=== PATIENT | female | born 1935 | race Caucasian/White ===

== ENCOUNTER 2019-12-16 09:18 | Observation (INO) ==
--- NOTE | 2019-12-16 09:42 | ED.PDOC ---
General ED Provider: Dr. JOVANI ALONSO Chief Complaint: Hypertension Stated Complaint: Went to clinic for eval of rt knee pain. Discovered BP drastically elevated. Referred to ER. Denies Headache, visual changes, chest pain or other symptoms. Time Seen by Physician: 09:30 Mode of Arrival: Wheelchair Information Source: Patient Nursing and Triage Documentation Reviewed and Agree: Yes Does patient meet sepsis criteria?: No System Inflammatory Response Syndrome: Not Applicable Sepsis Protocol: For patient's 13 years and over: Temp is 96.8 and below OR 101 and greater Pulse >90 BPM Resp >20/minute Acutely Altered Mental Status Are patient's symptoms suggestive of a new infection, such as: -Pneumonia -Skin, Soft Tissue -Endocarditis -UTI -Bone, Joint Infection -Implantable Device -Acute Abdominal Infection -Wound Infection -Meningitis -Blood Stream Catheter Infection -Unknown Cardiovascular Complaint Exam Hypertension Complaint/Exam Onset/Duration: First noted this morning Symptoms Are: Still present Timing: Constant Reported B/P Prior to Arrival: 218/100 H Alleviating: Reports None Associated Signs and Symptoms: Denies Chest pain, Vision changes, Anxiety, Recent stress, Headache, Numbness, Tingling, Weakness, Dizziness, Short of air and Swelling Related History: Denies Similar episode Related Surgical History: Reports None Cardiac Risk Factors: Reports None and Hypertension Recent Change in Medications: No A/V Nicking: No Papilledema Present: No JVD Present: No Carotid Bruit Present: No Femoral Pulses Bounding: No Differential Diagnoses: Hypertension and Hypertensive Urgency Quality Indicator For Non-Traumatic Chest Pain/Syncope: EKG Performed Review of Systems Review Of Systems Constitutional: Reports No symptoms Eyes: Reports No symptoms Ears, Nose, Mouth, Throat: Reports No symptoms Respiratory: Reports No symptoms Cardiac: Reports No symptoms GI: Reports No symptoms : Reports No symptoms Musculoskeletal: Reports Joint pain (Rt Knee) and Joint swelling Skin: Reports No symptoms Neurological: Reports No symptoms Endocrine: Reports No symptoms Hematologic/Lymphatic: Reports No symptoms All Other Systems: Reviewed and Negative [facility] Medical History History of appendectomy (Acute) Family History BROTHER Diabetes Cardiac arrest Hypertension Elevated cholesterol Social History Smoking and tobacco status: Never smoker Alcohol intake: never Kristi/gnosticism: JEW Number of children: 1 Female Reproductive History Menstrual Age of Menarche: 14 Date of menopause: 11/26/89 Total pregnancies: 1 Full term: 1 Physical Exam Physical Exam Appearance: Reports Well-appearing, No pain distress and Well-nourished Ill-appearing: None Pain Distress: None Eyes: Reports JOHNNIE, EOMI and Conjunctiva clear ENT: Reports Ears normal, Nose normal and Oropharynx normal Neck: Supple Respiratory: Reports Airway patent, Breath sounds clear, Breath sounds equal and Respirations nonlabored Cardiovascular: Reports RRR, Pulses normal, No rub and No murmur GI/: Reports Soft, Nontender, No masses, Bowel sounds normal and No Organomegaly Musculoskeletal: Reports Normal strength, ROM intact, No edema (Rt Knee/minimally tender) and No calf tenderness Skin: Reports Warm, Dry and Normal color Neurological: Reports Sensation intact, Motor intact, Reflexes intact, Cranial nerves intact, Alert and Oriented Psychiatric: Reports Affect appropriate and Mood appropriate Interpretation Radiology Interpretation Radiology Interpretation By: Radiologist Exam Interpreted: CXR (No acute cardiopulmonary process. 2. Retrocardiac opacity likely moderate to large hiatal hernia. Other etiologies considered less likely. Question associated gaseous esophageal distension. Recommend correlation with CT chest. ) and Other (Knee-degerative changes) Rn Radiation Time of Rn Radiation Interpretation: 09:30 Rate: Tachy Rhythm: Sinus Ectopy: None EKG Interpretation Time of EKG #1: 09:47 Rate: Tachy Rhythm: Sinus Ectopy: None [place]: Left ST Segment: Normal Interpretation: LVH Physician Notification Case Discussed Physician Notified: Kirsty admission Time of Notification: 14:00 Critical Care Note Critical Care Note Total Time (mins): 60 Course Course Hematology/Chemistry: 12/16/19 09:50 12/16/19 09:50 Orders, Labs, Meds: Lab Review 12/16/19 12/16/19 12/16/19 09:50 09:50 09:50 WBC 7.52 RBC 4.89 Hgb 14.8 Hct 44.4 MCV 90.8 MCH 30.3 MCHC 33.3 RDW Coeff of Junior 11.9 Plt Count 295 Immature Gran % (Auto) 0.4 Neut % (Auto) 81.8 H Lymph % (Auto) 9.8 L [place] % (Auto) 7.2 Eos % (Auto) 0.1 Baso % (Auto) 0.7 Immature Gran # (Auto) 0.0 Neut # (Auto) 6.2 Lymph # (Auto) 0.7 [place] # (Auto) 0.5 Eos # (Auto) 0.0 Baso # (Auto) 0.1 Sodium 136.3 Potassium 4.32 Chloride 103.8 Carbon Dioxide 22.8 Anion Gap 14.02 BUN 16.9 Creatinine 0.88 Estimated GFR (MDRD) 62.00 BUN/Creatinine Ratio 19.20 Glucose 153.0 H Hemoglobin A1c Calcium 9.90 Magnesium 2.12 Total Bilirubin 0.65 AST 43.0 H ALT 19.7 Alkaline Phosphatase 93.9 Troponin I < 0.012 Total Protein 8.21 H Albumin 4.68 Globulin 3.53 Albumin/Globulin Ratio 1.32 Urine Color Urine Clarity Urine pH Ur Specific [place] Urine Protein Urine Glucose (UA) Urine Ketones Urine Blood Urine Nitrite Urine Bilirubin Urine Urobilinogen Ur Leukocyte Esterase Urine Microscopic RBC Urine Microscopic WBC Ur Squamous Epith Cells Ur Renal Epithelial Cell Urine Opiates Screen Ur Oxycodone Screen Urine Methadone Screen Ur Propoxyphene Screen Ur Barbiturates Screen U Tricyclic Antidepress Ur Phencyclidine Scrn Ur Amphetamine Screen U Methamphetamines Scrn U Benzodiazepines Scrn Urine Cocaine Screen U Cannabinoids Screen 12/16/19 12/16/19 12/16/19 09:50 11:15 11:15 WBC RBC Hgb Hct MCV MCH MCHC RDW Coeff of Junior Plt Count Immature Gran % (Auto) Neut % (Auto) Lymph % (Auto) [place] % (Auto) Eos % (Auto) Baso % (Auto) Immature Gran # (Auto) Neut # (Auto) Lymph # (Auto) [place] # (Auto) Eos # (Auto) Baso # (Auto) Sodium Potassium Chloride Carbon Dioxide Anion Gap BUN Creatinine Estimated GFR (MDRD) BUN/Creatinine Ratio Glucose Hemoglobin A1c 5.89 Calcium Magnesium Total Bilirubin AST ALT Alkaline Phosphatase Troponin I Total Protein Albumin Globulin Albumin/Globulin Ratio Urine Color Cancelled Urine Clarity Cancelled Urine pH Cancelled Ur Specific [place] Cancelled Urine Protein Cancelled Urine Glucose (UA) Cancelled Urine Ketones Cancelled Urine Blood Cancelled Urine Nitrite Cancelled Urine Bilirubin Cancelled Urine Urobilinogen Cancelled Ur Leukocyte Esterase Cancelled Urine Microscopic RBC Urine Microscopic WBC Ur Squamous Epith Cells Ur Renal Epithelial Cell Urine Opiates Screen Cancelled Ur Oxycodone Screen Cancelled Urine Methadone Screen Cancelled Ur Propoxyphene Screen Cancelled Ur Barbiturates Screen Cancelled U Tricyclic Antidepress Cancelled Ur Phencyclidine Scrn Cancelled Ur Amphetamine Screen Cancelled U Methamphetamines Scrn Cancelled U Benzodiazepines Scrn Cancelled Urine Cocaine Screen Cancelled U Cannabinoids Screen Cancelled 12/16/19 12/16/19 12:23 12:23 WBC RBC Hgb Hct MCV MCH MCHC RDW Coeff of Junior Plt Count Immature Gran % (Auto) Neut % (Auto) Lymph % (Auto) [place] % (Auto) Eos % (Auto) Baso % (Auto) Immature Gran # (Auto) Neut # (Auto) Lymph # (Auto) [place] # (Auto) Eos # (Auto) Baso # (Auto) Sodium Potassium Chloride Carbon Dioxide Anion Gap BUN Creatinine Estimated GFR (MDRD) BUN/Creatinine Ratio Glucose Hemoglobin A1c Calcium Magnesium Total Bilirubin AST ALT Alkaline Phosphatase Troponin I Total Protein Albumin Globulin Albumin/Globulin Ratio Urine Color Yellow Urine Clarity Clear Urine pH 6.5 Ur Specific [place] 1.010 Urine Protein Negative Urine Glucose (UA) Negative Urine Ketones Negative Urine Blood 1+ Urine Nitrite Negative Urine Bilirubin Negative Urine Urobilinogen 0.2 Ur Leukocyte Esterase Trace Urine Microscopic RBC 0-2 Urine Microscopic WBC 0-2 Ur Squamous Epith Cells 0-2 Ur Renal Epithelial Cell 0-2 Urine Opiates Screen Negative Ur Oxycodone Screen Negative Urine Methadone Screen Negative Ur Propoxyphene Screen Negative Ur Barbiturates Screen Negative U Tricyclic Antidepress Negative Ur Phencyclidine Scrn Negative Ur Amphetamine Screen Negative U Methamphetamines Scrn Negative U Benzodiazepines Scrn Negative Urine Cocaine Screen Negative U Cannabinoids Screen Negative Orders Category Date Time Status ADMIT OBSERVATION [PLACE PATIENT OBSERVATION] .TO ADMISSION 12/16/19 14:09 Active MEDSURG (MONITORED BED) EKG-(ED ONLY) Stat CARDIO 12/16/19 09:42 Completed ACTIVITY .BR with BRP CARE 12/16/19 14:04 Active BLOOD GLUCOSE MONITORING 0630,1100,1700,2100 CARE 12/16/19 14:04 Active INTAKE & OUTPUT Q8HR CARE 12/16/19 14:04 Active TELEMETRY MONITORING TELE CARE 12/16/19 14:10 Active VITAL SIGNS Q4HR CARE 12/16/19 14:04 Active 2 GRAM SODIUM DIET DIETARY 12/16/19 Lunch Ordered IV [ED IV/MEDIPORT/POWERPORT] .ONCE EMERGENCY 12/16/19 09:43 Active CBC W/ AUTO DIFF Stat LAB 12/16/19 09:50 Completed CMP [COMPREHENSIVE METABOLIC PANEL] Stat LAB 12/16/19 09:50 Completed DRUG SCREEN (RAPID FOR ED) [DRUG SCREEN, URINE, RAPID] LAB 12/16/19 12:23 Completed Stat HEMOGLOBIN A1C Stat LAB 12/16/19 09:50 Completed MAGNESIUM Stat LAB 12/16/19 09:50 Completed TROPONIN I Stat LAB 12/16/19 09:50 Completed URINALYSIS C & S IF INDICATED Stat LAB 12/16/19 12:23 Completed 0.9 % Sodium Chloride [Saline Flush] MEDS 12/16/19 09:43 Active 1 syr IVF PRN PRN Acetaminophen [Tylenol] MEDS 12/16/19 14:03 Ordered 650 mg PO Q4H PRN Labetalol HCl [Trandate] MEDS 12/16/19 10:03 Discontinued 10 mg IVP ONCE STA Labetalol HCl [Trandate] MEDS 12/16/19 10:53 Discontinued 10 mg IVP ONCE STA Labetalol HCl [Trandate] MEDS 12/16/19 12:27 Discontinued 100 mg PO ONCE STA RESUSCITATION STATUS Routine OTHERS 12/16/19 14:03 Ordered CHEST, 2 VIEWS PA & LAT Stat RADS 12/16/19 09:42 Completed KNEE, RIGHT 4 VIEWS Stat RADS 12/16/19 09:59 Completed Medications Generic Name Dose Route Start Last Admin Trade Name Freq PRN Reason Stop Dose Admin Acetaminophen 650 mg 12/16/19 14:03 Tylenol PO Q4H PRN Pain Sodium Chloride 1 syr 12/16/19 09:43 12/16/19 10:14 Saline Flush IVF 1 syr PRN PRN Administration To flush IV Discontinued Medications Generic Name Dose Route Start Last Admin Trade Name Freq PRN Reason Stop Dose Admin Labetalol HCl 10 mg 12/16/19 10:03 12/16/19 10:11 Trandate IVP 12/16/19 10:04 10 mg ONCE STA Administration Labetalol HCl 10 mg 12/16/19 10:53 12/16/19 11:04 Trandate IVP 12/16/19 10:54 10 mg ONCE STA Administration Labetalol HCl 100 mg 12/16/19 12:27 12/16/19 12:34 Trandate PO 12/16/19 12:28 100 mg ONCE STA Administration Vital Signs: Temp Pulse Resp BP Pulse Ox 12/16/19 09:18 97.8 F 135 H 20 239/135 H 97 LARA Risk Score LARA Risk Score: Risk Score Odds of by 30D 0 0.1 (0.1-0.2) 1 0.3 (0.2-0.3) 2 0.4 (0.3-0.5) 3 0.7 (0.6-0.9) 4 1.2 (1.0-1.5) 5 2.2 (1.9-2.6) 6 3.0 (2.5-3.6) 7 4.8 (3.8-6.1) Additional Information: 1250 hr Discussed plans for discharge with patient and her daughter in law. Patient reluctant and I expressed concern over close monit oring of her BP and she agreed to accept admission. Placed a call for hospitalist for admission. Awaiting call back
[2019-12-16] MEDS ORDERED: TRANDATE IVP STA ×2 (10:03→10:53)
--- NOTE | 2019-12-16 10:41 | DI ---
EXAM: Right knee three-view HISTORY: Pain right knee COMPARISON: None FINDINGS: No fracture or dislocation. Small medial and retropatellar osteophytes. Mild narrowing m edial and patellofemoral compartment. No definite joint effusion. IMPERSSION: 1. No fracture or dislocation. 2. Mild osteoarthritis
--- NOTE | 2019-12-16 10:48 | DI ---
EXAM: Chest two views HISTORY: Hypotension COMPARISON: None TECHNIQUE: Two views of the chest were performed FINDINGS: The lungs are clear. There is no pleural effusion or pneumothorax. The heart is normal i n size. The mediastinal contour is normal, noting atherosclerosis. There are no acute abnormalities of the bones. Retrocardiac opacity likely moderate to large hiatal hernia. Question associated gase ous esophageal distension. IMPRESSION: 1. No acute cardiopulmonary process. 2. Retrocardiac opacity likely moderate to large hiatal hernia. Other etiologies considered less li janis. Question associated gaseous esophageal distension. Recommend correlation with CT chest.
[2019-12-16] MEDS ORDERED: TRANDATE PO STA (12:27)
[2019-12-16] MEDS ORDERED: TYLENOL PO PRN (14:03)
[2019-12-16 15:05] VITALS: BMI 22.5
--- NOTE | 2019-12-16 15:24 | PCM ---
Chief Complaint Chief Complaint: "High blood pressure reading at doctor's office" History of Present Illness History of Present Illness: Yvonne Zuiñga is a 84 yo female patient who presents to [facility] ER this afternoon as referral from an unknown clinic due to incidental finding of elevated BP 218/110 upon check in for R knee pain appt for 1-2 weeks. The patient has not seen a provider for 52 yrs since her son was born and denies any known health issues till now. She now says her R knee x-ray ordered today "just showed osteoarthritis." She was not given any medications, but sent to [facility] ER instead for HTN tx. She has never had her BP taken in 52 yrs and has not had any symptoms of HTN--CP, headaches, dizziness, swelling, fatigue, or other c/o's. See ROS below. She never takes medications or has a well physical. Patient denies ETOH, Tobacco, or Elicit Drug usage. [facility] is positive for 52 yo son for MT age 50yo w/ HTN. Her brother recently in his 90's w/ multiple health problems, including DM, HTN, Pacemaker, HLD, and MT. Review of Systems Constitutional: No fever, chills, weakness, sweats, fatigue and loss of appetite Eyes: No blurred vision, double-vision, discharge, itching, pain and redness Ears: hearing loss ([employer] for 1 yr; "getting my ears checked soon for hearing aids"); No pain, bleeding and drainage Nose: No bleeding, congestion and discharge Throat: No pain, swelling and voice change Mouth: No bleeding and swelling Respiratory: No cough, shortness of air, wheeze, hemoptysis and pain with breathing Cardiovascular: No chest pain, left arm pain, diaphoresis, PND, orthopnea, edema, palpitations and syncope Gastrointestinal: No abdominal pain, nausea, vomiting, diarrhea, melena, hematemesis, hematochezia and constipation (Last BM this AM.) Genitourinary: No dysuria, hematuria, frequency, incontinence, flank pain, vaginal discharge, abnormal bleeding and pelvic pain Last Menstrual Cycle: Post Menopausal Neurological: No headache, dizziness, seizure, numbness, weakness, speech difficulty, problems with walking, tremor and fainting Musculoskeletal: pain (R knee for 1-2 weeks---"just had x-ray today and they told me it was just arthritis" ) and swelling in joints (w/ R knee pain had swelling entire knee that would go down at HS w/ rest; denies redness, heat, or tenderness to touch.) Skin: No rash, pruritus, lacerations, wounds and bruising Hematology: No easy bruising, easy bleeding and swollen glands Endocrine: No weight changes, cold intolerance, heat intolerance, excessive thirst, excessive hunger and polyuria Psychiatric: depression ("sometimes I feel a little sad since my brother , but I call someone and talk it out." ); No anxiety, sleeplessness, hopelessness, suicidal and hallucinations Habits: No tobacco use, substance use and alcohol use Allergies Allergies Allergy/AdvReac Type Severity Reaction Status Date / Time No Known Allergies Allergy Verified 12/16/19 09:22 [facility] Surgical History History of appendectomy (Acute) Family History BROTHER Cardiac arrest Diabetes Elevated cholesterol Hypertension Pacemaker Social History Smoking and tobacco status: Never smoker Alcohol intake: never Substance use type: does not use Kristi/denominational: JEW Special kristi needs: No Agree to transfusion: Yes Adopted: No Caregiver/support person: No Household members: none Housing: house Marital status: D Lives independently: Yes Number of children: 1 Number of grandchildren: 2 Highest education level completed: 8th grade Current occupational status: retired Previous occupational history: Retired cosemetologist Pets and animals: Yes History of recent travel: No Sexually active: No Do you think of yourself as: straight/heterosexual Current gender identity: female Medications Medications: Medications Generic Name Dose Route Start Last Admin Trade Name Freq PRN Reason Stop Dose Admin Acetaminophen 650 mg 12/16/19 14:03 Tylenol PO Q4H PRN Pain Sodium Chloride 1 syr 12/16/19 09:43 12/16/19 10:14 Saline Flush IVF 1 syr PRN PRN Administration To flush IV Body Composition Height: 5 ft 2 in Weight: 123 lb 3.814 oz Body Mass Index (BMI): 22.5 Physical Examination HEENT: Vital Signs Temp Pulse Resp BP Pulse Ox 12/16/19 17:05 98.6 F 85 18 160/100 H 98 12/16/19 14:40 97.8 F 78 16 98 12/16/19 09:18 97.8 F 135 H 20 239/135 H 97 Head: Head: Normocephalic; No lesions or lacerations noted. All sinuses non- tender on palpation. Ears: No pinna tenderness or abnormality. Bilateral canals patent w/o erythema, tenderness, edema, wax or d/c. TM's shiny christ/perez w/ landmarks present; no bulging or fluid present. [employer]. Eyes: Eye lids w/o swelling, erythema, or lesions. PERRLA. No tameka erythema of iris/conjunctiva or other abnormalities noted. No drainage or periorbital edema. Vision grossly intact. Nose: Patent bilaterally. Nasal mucosa pink and moist. No lesions. No discharge or blood noted. Nasal septum not deviated. Throat: Pharynx w/ injection, lesions or PND. Tonsils w/o deviation, enlargement or lesions. Uvula midline. Mouth: Oral mucosa pink and moist. Missing teeth upper & lower bilaterally w/ no dental carries noted w/o gum erythema, swelling, or lesions. Dentition discussed and appropriate oral care. Tongue normal/midline. Neck: Supple; NT to palpation w/o masses or lymphadenopathy; FROM w/o pain. Thyroid palpable w/o tenderness or nodules noted. Neurological: A/OX4. Cranial nerves II-XII evaluated and intact. LOZOYA well; symmetrical. Symmetrical face and body posture. Gait steady. Rhomberg negative. Cyrus's Negative. Reflexes intact w/ DTR 2+/4+ patellar, Achilles, bicep, brachial and triceps. Strength 4/5= bilaterally UE and LE. Sensation intact to light and strong tactile extremities X4. No Parkinsons or other tremor, head bobbing, or pill rolling tremor noted. Chest: Chest wall symmetric; no pectus deformity. NT to palpation. Lungs: CTA. No rhonchi, rales, or wheezes. No retractions. Respirations easy and regular at rest and exercise. No cough on exam. O2 sat 99% on RA. Heart: Carotid Arteries normal, no bruits or abnormal pulsations. Jugular veins w/o pulsations or JVD. Palpation w/ normal PMI; no palpable thrill. RRR. Holistic systolic murmur > 5th ICS 3+/4+. Extremities w/o clubbing, cyanosis, edema or increased warmth. NBB. Abdomen: Normal inspection w/ no visible pulsations. Normal contour. GAYATRI/SO present; no bruits. Soft, NT, no rebound tenderness or guarding, no masses or organomegaly. No CVA tenderness. No hernias noted. Rectal not examined. M/S: LOZOYA well and symmetrically. No digital clubbing or cyanosis present w/ sensation intact X4. All extremities w/ normal temperature; no swelling, edema, or ulcerations. DP pulses 2+ bilaterally. Normal capillary refill. NeuroPsych: Alert & oriented X4. Good eye contact. Cooperative and pleasant. Resting quielty in bed. Admits to some anxiety re: ST memory issues (See ROS). Thought content appropriate. ST & LT memory intact at present. Judgement appropriate. Denies active thoughts or plan SI or HI; no history suicide attempt or ideation in past. Lab/Tests/Diagnostic Imaging Lab/Tests/Diagnostic Imaging: Lab Review 12/16/19 12/16/19 12/16/19 09:50 09:50 09:50 WBC 7.52 RBC 4.89 Hgb 14.8 Hct 44.4 MCV 90.8 MCH 30.3 MCHC 33.3 RDW Coeff of Junior 11.9 Plt Count 295 Immature Gran % (Auto) 0.4 Neut % (Auto) 81.8 H Lymph % (Auto) 9.8 L [place] % (Auto) 7.2 Eos % (Auto) 0.1 Baso % (Auto) 0.7 Immature Gran # (Auto) 0.0 Neut # (Auto) 6.2 Lymph # (Auto) 0.7 [place] # (Auto) 0.5 Eos # (Auto) 0.0 Baso # (Auto) 0.1 Sodium 136.3 Potassium 4.32 Chloride 103.8 Carbon Dioxide 22.8 Anion Gap 14.02 BUN 16.9 Creatinine 0.88 Estimated GFR (MDRD) 62.00 BUN/Creatinine Ratio 19.20 Glucose 153.0 H Hemoglobin A1c Calcium 9.90 Magnesium 2.12 Total Bilirubin 0.65 AST 43.0 H ALT 19.7 Alkaline Phosphatase 93.9 Troponin I < 0.012 Total Protein 8.21 H Albumin 4.68 Globulin 3.53 Albumin/Globulin Ratio 1.32 Urine Color Urine Clarity Urine pH Ur Specific [place] Urine Protein Urine Glucose (UA) Urine Ketones Urine Blood Urine Nitrite Urine Bilirubin Urine Urobilinogen Ur Leukocyte Esterase Urine Microscopic RBC Urine Microscopic WBC Ur Squamous Epith Cells Ur Renal Epithelial Cell Urine Opiates Screen Ur Oxycodone Screen Urine Methadone Screen Ur Propoxyphene Screen Ur Barbiturates Screen U Tricyclic Antidepress Ur Phencyclidine Scrn Ur Amphetamine Screen U Methamphetamines Scrn U Benzodiazepines Scrn Urine Cocaine Screen U Cannabinoids Screen 12/16/19 12/16/19 12/16/19 09:50 11:15 11:15 WBC RBC Hgb Hct MCV MCH MCHC RDW Coeff of Junior Plt Count Immature Gran % (Auto) Neut % (Auto) Lymph % (Auto) [place] % (Auto) Eos % (Auto) Baso % (Auto) Immature Gran # (Auto) Neut # (Auto) Lymph # (Auto) [place] # (Auto) Eos # (Auto) Baso # (Auto) Sodium Potassium Chloride Carbon Dioxide Anion Gap BUN Creatinine Estimated GFR (MDRD) BUN/Creatinine Ratio Glucose Hemoglobin A1c 5.89 Calcium Magnesium Total Bilirubin AST ALT Alkaline Phosphatase Troponin I Total Protein Albumin Globulin Albumin/Globulin Ratio Urine Color Cancelled Urine Clarity Cancelled Urine pH Cancelled Ur Specific [place] Cancelled Urine Protein Cancelled Urine Glucose (UA) Cancelled Urine Ketones Cancelled Urine Blood Cancelled Urine Nitrite Cancelled Urine Bilirubin Cancelled Urine Urobilinogen Cancelled Ur Leukocyte Esterase Cancelled Urine Microscopic RBC Urine Microscopic WBC Ur Squamous Epith Cells Ur Renal Epithelial Cell Urine Opiates Screen Cancelled Ur Oxycodone Screen Cancelled Urine Methadone Screen Cancelled Ur Propoxyphene Screen Cancelled Ur Barbiturates Screen Cancelled U Tricyclic Antidepress Cancelled Ur Phencyclidine Scrn Cancelled Ur Amphetamine Screen Cancelled U Methamphetamines Scrn Cancelled U Benzodiazepines Scrn Cancelled Urine Cocaine Screen Cancelled U Cannabinoids Screen Cancelled 12/16/19 12/16/19 12:23 12:23 WBC RBC Hgb Hct MCV MCH MCHC RDW Coeff of Junior Plt Count Immature Gran % (Auto) Neut % (Auto) Lymph % (Auto) [place] % (Auto) Eos % (Auto) Baso % (Auto) Immature Gran # (Auto) Neut # (Auto) Lymph # (Auto) [place] # (Auto) Eos # (Auto) Baso # (Auto) Sodium Potassium Chloride Carbon Dioxide Anion Gap BUN Creatinine Estimated GFR (MDRD) BUN/Creatinine Ratio Glucose Hemoglobin A1c Calcium Magnesium Total Bilirubin AST ALT Alkaline Phosphatase Troponin I Total Protein Albumin Globulin Albumin/Globulin Ratio Urine Color Yellow Urine Clarity Clear Urine pH 6.5 Ur Specific [place] 1.010 Urine Protein Negative Urine Glucose (UA) Negative Urine Ketones Negative Urine Blood 1+ Urine Nitrite Negative Urine Bilirubin Negative Urine Urobilinogen 0.2 Ur Leukocyte Esterase Trace Urine Microscopic RBC 0-2 Urine Microscopic WBC 0-2 Ur Squamous Epith Cells 0-2 Ur Renal Epithelial Cell 0-2 Urine Opiates Screen Negative Ur Oxycodone Screen Negative Urine Methadone Screen Negative Ur Propoxyphene Screen Negative Ur Barbiturates Screen Negative U Tricyclic Antidepress Negative Ur Phencyclidine Scrn Negative Ur Amphetamine Screen Negative U Methamphetamines Scrn Negative U Benzodiazepines Scrn Negative Urine Cocaine Screen Negative U Cannabinoids Screen Negative Orders Category Date Time Status ADMIT OBSERVATION [PLACE PATIENT OBSERVATION] .TO ADMISSION 12/16/19 14:09 Active MEDSURG (MONITORED BED) EKG-(ED ONLY) Stat CARDIO 12/16/19 09:42 Completed ACTIVITY .BR with BRP CARE 12/16/19 14:04 Active BLOOD GLUCOSE MONITORING 0630,1100,1700,2100 CARE 12/16/19 14:04 Active INTAKE & OUTPUT Q8HR CARE 12/16/19 14:04 Active TELEMETRY MONITORING TELE CARE 12/16/19 14:10 Active VITAL SIGNS Q4HR CARE 12/16/19 14:04 Active 2 GRAM SODIUM DIET DIETARY 12/16/19 Lunch Ordered IV [ED IV/MEDIPORT/POWERPORT] .ONCE EMERGENCY 12/16/19 09:43 Active CBC W/ AUTO DIFF Stat LAB 12/16/19 09:50 Completed CMP [COMPREHENSIVE METABOLIC PANEL] Stat LAB 12/16/19 09:50 Completed DRUG SCREEN (RAPID FOR ED) [DRUG SCREEN, URINE, RAPID] LAB 12/16/19 12:23 Completed Stat HEMOGLOBIN A1C Stat LAB 12/16/19 09:50 Completed MAGNESIUM Stat LAB 12/16/19 09:50 Completed TROPONIN I Stat LAB 12/16/19 09:50 Completed URINALYSIS C & S IF INDICATED Stat LAB 12/16/19 12:23 Completed 0.9 % Sodium Chloride [Saline Flush] MEDS 12/16/19 09:43 Active 1 syr IVF PRN PRN Acetaminophen [Tylenol] MEDS 12/16/19 14:03 Active 650 mg PO Q4H PRN Labetalol HCl [Trandate] MEDS 12/16/19 10:03 Discontinued 10 mg IVP ONCE STA Labetalol HCl [Trandate] MEDS 12/16/19 10:53 Discontinued 10 mg IVP ONCE STA Labetalol HCl [Trandate] MEDS 12/16/19 12:27 Discontinued 100 mg PO ONCE STA RESUSCITATION STATUS Routine OTHERS 12/16/19 14:03 Completed RESUSCITATION STATUS Routine OTHERS 12/16/19 15:05 Ordered CHEST, 2 VIEWS PA & LAT Stat RADS 12/16/19 09:42 Completed KNEE, RIGHT 4 VIEWS Stat RADS 12/16/19 09:59 Completed Medications Generic Name Dose Route Start Last Admin Trade Name Freq PRN Reason Stop Dose Admin Acetaminophen 650 mg 12/16/19 14:03 Tylenol PO Q4H PRN Pain Sodium Chloride 1 syr 12/16/19 09:43 12/16/19 10:14 Saline Flush IVF 1 syr PRN PRN Administration To flush IV Discontinued Medications Generic Name Dose Route Start Last Admin Trade Name Freq PRN Reason Stop Dose Admin Labetalol HCl 10 mg 12/16/19 10:03 12/16/19 10:11 Trandate IVP 12/16/19 10:04 10 mg ONCE STA Administration Labetalol HCl 10 mg 12/16/19 10:53 12/16/19 11:04 Trandate IVP 12/16/19 10:54 10 mg ONCE STA Administration Labetalol HCl 100 mg 12/16/19 12:27 12/16/19 12:34 Trandate PO 12/16/19 12:28 100 mg ONCE STA Administration Assessment (1) Asymptomatic hypertensive urgency: Status: Acute Code(s): I10 - Essential (primary) hypertension SNOMED Code(s): 484556331 (2) No significant past medical history: Status: Acute SNOMED Code(s): 678785304 Plan Plan: Asymptomatic Hypertensive Urgency--Stable, but guarded. Incidental finding of unknown HTN at first medical visit in 52 yrs for R knee pain/arthritis. Upon arrival to ER BP 185/98 HR slightly tachy per ER MD burnett/ Labetalol 10mg given PO X2 12/16/2019 10:03 & 10:53 in ER and then given Labetalol 100mg PO today @ 12:27. EKG is highly suspicious of LT HTN w/ EKG reviewed per ER MD and this CRINKLING MACHINE OPERATOR noting ST rate 116; probable L atrial enlargement, and LVH. ECHO ordered. Will monitor VS & telemetry tonight w/ this OBS patient and d/c w/ Metoprolol if tolerating meds well. She has no PCP or digital business analyst and may return to the clinic she was referred from today. Her [id number] is a NA at [facility] and wants to see if she can get the patient in to see a digital business analyst there upon discharge. May need to return to PCP for that if no worrisome findings w/ ECHO results or changes in the night. Patient has loud holistic systolic murmur >5th ICS likely due to chronic unmanaged HTN. Otherwise she is very active and independent, but other heart issues need to be ruled out. Continue to monitor I&O, VS, and patient status. Call CRINKLING MACHINE OPERATOR with concerns. Will order IV Labetalol to be used only if SBP >175; care not to over medicate this medication naive lady. Patient also confirmed with CRINKLING MACHINE OPERATOR and RN that she desires to be a full DNR w/ papers signed for RN. Labs, EKG, and CXR reviewed and discussed w/ patient, family, & nursing staff. CBC wnl, Chem profile w/ Glucose 153 non-fasting sample/normal, and UA wnl except for 1+ blood. CXR impression=No acute cardiopulmonary process; Retrocardiac opacity likely moderate to large hiatal hernia; Other etiologies considered less likely; Question associated gaseous esophageal distension; Recommend correlation with CT chest. Will have patient f-u w/ PCP in regards to recommended CT Chest as OP. Right Knee Pain, Resolved 4 view R Knee x-ray of today notes No fracture or dislocation; Mild osteoarthritis. No pain at present. No treatment for knee pain wanted by patient at this time. No Significan Past Medical History---No medical treatment or evaluation for 52 yrs. Discussed needed health promotion exams and present findings on EKG including need for digital business analyst f-u. Also, discussed early detection of physical and other medical issues and the value of early treatment and complication prevention. Patient v/o understanding, states she wants medication for her BP now if she needs it, and will f-u w/ PCP and digital business analyst for her needs for health exams. Disposition: 50minutes w/ Pt. Care, Family/patient education and discussion of findings & plan of care. Questions answered. Will observe overnight w/ possible d/c 24-48 hrs if patient remains stable. PFSH Family History BROTHER Cardiac arrest Diabetes Elevated cholesterol Hypertension Pacemaker Social History Smoking and tobacco status: Never smoker Alcohol intake: never Substance use type: does not use Kristi/denominational: JEW Special kristi needs: No Agree to transfusion: Yes Adopted: No Caregiver/support person: No Household members: none Housing: house Marital status: D Lives independently: Yes Number of children: 1 Number of grandchildren: 2 Highest education level completed: 8th grade Current occupational status: retired Previous occupational history: Retired cosemetologist Pets and animals: Yes History of recent travel: No Sexually active: No Do you think of yourself as: straight/heterosexual Current gender identity: female Female Reproductive History Menstrual Age of Menarche: 14 Menopause type: natural Date of menopause: 11/26/76 Total pregnancies: 1
[2019-12-16] MEDS: LOVENOX SUBCUT SCH (16:07)
[2019-12-16] MEDS ORDERED: TRANDATE IVP PRN (20:35)
[2019-12-17] MEDS ORDERED: TRANDATE IVP PRN (05:51)
[2019-12-17] MEDS: LOVENOX SUBCUT SCH (08:57)
[2019-12-17] MEDS ORDERED: PNEUMOVAX 23 IM ONE (09:00)
[2019-12-17] MEDS ORDERED: FLUZONE HIGH-DOSE 2019-20 SYR IM ONE (09:00)
--- NOTE | 2019-12-17 10:16 | PCM.PROG ---
Date Seen by Provider: 12/17/19 Time Seen by Provider: 10:15 Objective: Vitals: Vital Signs Temp Pulse Resp BP Pulse Ox 12/17/19 14:00 96 12/17/19 12:30 80 170/110 H 12/17/19 10:00 97.7 F 115 H 18 218/102 H 99 12/17/19 06:00 97.3 F L 106 H 16 188/100 H 99 12/17/19 02:00 98.1 F 97 H 18 150/89 H 98 12/16/19 21:49 97.9 F 82 18 178/92 H 98 12/16/19 19:00 170/80 H 12/16/19 18:00 97.7 F 83 18 188/92 H 98 12/16/19 17:55 98 12/16/19 17:05 98.6 F 85 18 160/100 H 98 12/16/19 14:40 97.8 F 78 16 98 12/16/19 09:18 97.8 F 135 H 20 239/135 H 97 HEENT: Eyes-no redness, swelling or d/c. Ears: pinna w/o tenderness/pain. Hearing--[place] w/o hearing aids. Pharynx: w/o injection, cobblestoning, lesions or PND. No dysph Neck: Supple; NT; No lymphadenopathy Lungs: CTA. No rales, rhonchi, crackles, or wheezing. No cough on exam. No retractions. Respirations easy and regular. RA O2 sat 99%. CVS: RRR; Systolic holistic murmur > L 5th ICS 3+/4+. No JVD. PPP 2+/4+ and =. No edema. No cyanosis; NBB Abdomen: Soft, NT, no rebound tenderness or guarding, no organomegaly or masses. GAYATRI/SO present. Extremities: LOZOYA well w/ symmetry. Bilaterally X4 extremities strength 2+/4+ =. No edema. No muscular tenderness, erythema, or abnormalities X4 extremities. Ambulates w/ steady gait. Neurological: A/O X4. Cooperative and pleasant. Good eye contact. Up and about in room w/o assistance; steady. Normal gait. Speech clear. No other abnormalities noted. Skin: Dry & intact. No rashes or lesions noted. Lab/Tests/Diagnostic Imaging: Laboratory Results WBC 6.10 K/ul (4.6-10.2) 12/17/19 04:50 RBC 4.73 10^6/ul (4.20-5.40) 12/17/19 04:50 Hgb 14.3 g/dl (12.0-16.0) 12/17/19 04:50 Hct 43.5 % (37.0-47.0) 12/17/19 04:50 MCV 92.0 fl (81.0-99.0) 12/17/19 04:50 MCH 30.2 pg (27.0-31.0) 12/17/19 04:50 MCHC 32.9 (31.8-35.4) 12/17/19 04:50 RDW Coeff of Junior 12.1 % (11.6-14.8) 12/17/19 04:50 Plt Count 291 10^3/uL (140-440) 12/17/19 04:50 Immature Gran % (Auto) 0.3 % (0.0-5.0) 12/17/19 04:50 Neut % (Auto) 67.7 % (42.2-75.2) 12/17/19 04:50 Lymph % (Auto) 20.3 (10.0-50.0) 12/17/19 04:50 [place] % (Auto) 8.9 (0-10) 12/17/19 04:50 Eos % (Auto) 2.1 % (0.0-7.0) 12/17/19 04:50 Baso % (Auto) 0.7 % (0.0-3.0) 12/17/19 04:50 Immature Gran # (Auto) 0.0 (0.0-1.0) 12/17/19 04:50 Neut # (Auto) 4.1 K/ul (2.0-6.9) 12/17/19 04:50 Lymph # (Auto) 1.2 K/uL (0.60-3.4) 12/17/19 04:50 [place] # (Auto) 0.5 K/uL (0.4-2.0) 12/17/19 04:50 Eos # (Auto) 0.1 K/ul (0.0-0.7) 12/17/19 04:50 Baso # (Auto) 0.0 K/uL (0-0.2) 12/17/19 04:50 Sodium 137.8 mmol/L (134.5-145) 12/17/19 04:50 Potassium 3.95 mmol/L (3.5-5.1) 12/17/19 04:50 Chloride 104.2 mmol/L (98-107) 12/17/19 04:50 Carbon Dioxide 25.3 mmol/L (22-30.0) 12/17/19 04:50 Anion Gap 12.25 12/17/19 04:50 BUN 15.7 mg/dL (7-17) 12/17/19 04:50 Creatinine 0.85 mg/dL (0.60-1.30) 12/17/19 04:50 Estimated GFR (MDRD) 64.00 mL/min 12/17/19 04:50 BUN/Creatinine Ratio 18.47 12/17/19 04:50 Glucose 118.0 mg/dL (74-106) H 12/17/19 04:50 Hemoglobin A1c 5.89 (4.0-6.0) 12/16/19 09:50 Calcium 9.37 mg/dL (8.4-10.2) 12/17/19 04:50 Magnesium 2.12 mg/dL (1.6-2.3) 12/16/19 09:50 Total Bilirubin 0.47 mg/dL (0.2-1.3) 12/17/19 04:50 AST 25.2 U/L (14-36) 12/17/19 04:50 ALT 17.4 U/L (0-35) 12/17/19 04:50 Alkaline Phosphatase 79.4 U/L (53-141) 12/17/19 04:50 Troponin I < 0.012 ng/ml (0.0000-0.120) 12/16/19 09:50 Total Protein 7.11 g/dL (6.3-8.2) 12/17/19 04:50 Albumin 4.10 g/dL (3.5-5.0) 12/17/19 04:50 Globulin 3.01 12/17/19 04:50 Albumin/Globulin Ratio 1.36 12/17/19 04:50 Urine Color Yellow (YELLOW) 12/16/19 12:23 Urine Clarity Clear (CLEAR) 12/16/19 12:23 Urine pH 6.5 (5-9) 12/16/19 12:23 Ur Specific [place] 1.010 (1.005-1.030) 12/16/19 12:23 Urine Protein Negative (NEGATIVE) 12/16/19 12:23 Urine Glucose (UA) Negative (NEGATIVE) 12/16/19 12:23 Urine Ketones Negative (NEGATIVE) 12/16/19 12:23 Urine Blood 1+ (NEGATIVE) 12/16/19 12:23 Urine Nitrite Negative (NEGATIVE) 12/16/19 12:23 Urine Bilirubin Negative (NEGATIVE) 12/16/19 12:23 Urine Urobilinogen 0.2 (0.2) 12/16/19 12:23 Ur Leukocyte Esterase Trace (NEGATIVE) 12/16/19 12:23 Urine Microscopic RBC 0-2 (0-2) 12/16/19 12:23 Urine Microscopic WBC 0-2 (0-2) 12/16/19 12:23 Ur Squamous Epith Cells 0-2 (0-5) 12/16/19 12:23 Ur Renal Epithelial Cell 0-2 (NOT PRESENT) 12/16/19 12:23 Urine Opiates Screen Negative (NEGATIVE) 12/16/19 12:23 Ur Oxycodone Screen Negative (NEGATIVE) 12/16/19 12:23 Urine Methadone Screen Negative (NEGATIVE) 12/16/19 12:23 Ur Propoxyphene Screen Negative (NEGATIVE) 12/16/19 12:23 Ur Barbiturates Screen Negative (NEGATIVE) 12/16/19 12:23 U Tricyclic Antidepress Negative (NEGATIVE) 12/16/19 12:23 Ur Phencyclidine Scrn Negative (NEGATIVE) 12/16/19 12:23 Ur Amphetamine Screen Negative (NEGATIVE) 12/16/19 12:23 U Methamphetamines Scrn Negative (NEGATIVE) 12/16/19 12:23 U Benzodiazepines Scrn Negative (NEGATIVE) 12/16/19 12:23 Urine Cocaine Screen Negative (NEGATIVE) 12/16/19 12:23 U Cannabinoids Screen Negative (NEGATIVE) 12/16/19 12:23 ] (1) No significant past medical history: Status: Acute SNOMED Code(s): 392634312
--- NOTE | 2019-12-17 10:27 | ECHO2D ---
Date of Exam: 12/17/19 Ordering Physician: SIRIA LOPEZ--HOSPITALIST/[facility] Room #: [id number] Reason for Echo: HYPERTENSION M-Mode Normal Adult Results LV Dimensions Normal Adult Results AoV Opening excursions >1.6 >1.6 LVEDD-base- 3.5-5.8 4.7 Ao root dimensions 2.0-3.7 3.2 LVESD-base- 3.1-4.6 L. Atrium dimensions 1.9-3.8 4.6 Post. Wall thickness 0.8-1.1 1.2 IV septum (thickness) 0.7-1.2 1.2 Post. Wall excursion 0.72-1.3 NORMAL Septal motion 0.8 Systolic motion R. Ventricular cavity 1.5-2.0 NORMAL LVEF 60% 50% Paradoxical septal wall motion NORMAL 2-D : 2-D M Mode Echocardiogram was performed using apical four chamber and left parasternal long and short axis views. Mitral, tricuspid and aortic valves appear to be normal. Contractility of the left ventricle seems to be normal, so is the cavity size. MILDLY HYPOKINETIC SEPTUM. ENLARGED LEFT ATRIAL CAVITY. Aortic root appears to be normal. There is no pericardial effusion. There is no thrombus noted in the left ventricle or left atrial cavity. No mitral valve prolapse noted. M-MODE: MV: NORMAL AV: NORMAL TV: NORMAL PV: CHAMBER SIZE: ENLARGED LEFT ATRIAL CAVITY WALL MOTION: MILDLY HYPOKINETIC SEPTUM PERICARDIUM: NORMAL INTERPRETATION: 1. LEFT VENTRICULAR HYPERTROPHY BORDERLINE WITH ENLARGED LEFT ATRIAL CAVITY 2. NORMAL VALVES 3. NORMAL LEFT VENTRICLE SIZE 4. MILDLY HYPOKINETIC SEPTUM WITH EJECTION FRACTION 49% MTDD
[2019-12-17] MEDS ORDERED: TOPROL XL PO SCH (10:30)
--- NOTE | 2019-12-17 13:31 | PCM.DC ---
Final Diagnosis: Hypertensive Urgency, Stable w/ unknown, untreated Chronic HTN w/ asymptomatic heart disease. (1) Asymptomatic hypertensive urgency: Status: Acute Code(s): I10 - Essential (primary) hypertension SNOMED Code(s): 705747586 (2) Hypertension with heart disease: Status: Chronic Code(s): I11.9 - Hypertensive heart disease without heart failure SNOMED Code(s): 16155794 (3) No significant past medical history: Status: Acute SNOMED Code(s): 580337524 Reason for Hospitalization: Incidental finding of elevated BP 218/100 HR [facility] w/ ANAND TARANGO NP. Sent to hospital ER for further tx HTN; no past medical history known as patient has not seen a medical provider of any field for 52 yrs. Prognosis at Discharge: Good w/ significant heart disease noted on ECHO. BP is fairly resistant to control with slow tapering of medications to be done per Dr. Eric Wray, IM/Construction Flagger. Condition at Discharge: Stable w/ probably normal BP for her chronic HTN state. Discussed d/c today w/ Dr. Wray, who read patient ECHO and he agrees w/ d/c and f-u as noted previously. Patient totally asymptomatic for ROS; heart murmur is chronic and to be addressed by Dr. Wray. Medications at Discharge: Ambulatory Orders Medication Instructions Metoprolol ER 50mg Take 1 tablet every AM w/ breakfast daily RX #30 NRF Lab/Diagnostics: Laboratory Results WBC 6.10 K/ul (4.6-10.2) 12/17/19 04:50 RBC 4.73 10^6/ul (4.20-5.40) 12/17/19 04:50 Hgb 14.3 g/dl (12.0-16.0) 12/17/19 04:50 Hct 43.5 % (37.0-47.0) 12/17/19 04:50 MCV 92.0 fl (81.0-99.0) 12/17/19 04:50 MCH 30.2 pg (27.0-31.0) 12/17/19 04:50 MCHC 32.9 (31.8-35.4) 12/17/19 04:50 RDW Coeff of Junior 12.1 % (11.6-14.8) 12/17/19 04:50 Plt Count 291 10^3/uL (140-440) 12/17/19 04:50 Immature Gran % (Auto) 0.3 % (0.0-5.0) 12/17/19 04:50 Neut % (Auto) 67.7 % (42.2-75.2) 12/17/19 04:50 Lymph % (Auto) 20.3 (10.0-50.0) 12/17/19 04:50 Webb % (Auto) 8.9 (0-10) 12/17/19 04:50 Eos % (Auto) 2.1 % (0.0-7.0) 12/17/19 04:50 Baso % (Auto) 0.7 % (0.0-3.0) 12/17/19 04:50 Immature Gran # (Auto) 0.0 (0.0-1.0) 12/17/19 04:50 Neut # (Auto) 4.1 K/ul (2.0-6.9) 12/17/19 04:50 Lymph # (Auto) 1.2 K/uL (0.60-3.4) 12/17/19 04:50 Webb # (Auto) 0.5 K/uL (0.4-2.0) 12/17/19 04:50 Eos # (Auto) 0.1 K/ul (0.0-0.7) 12/17/19 04:50 Baso # (Auto) 0.0 K/uL (0-0.2) 12/17/19 04:50 Sodium 137.8 mmol/L (134.5-145) 12/17/19 04:50 Potassium 3.95 mmol/L (3.5-5.1) 12/17/19 04:50 Chloride 104.2 mmol/L (98-107) 12/17/19 04:50 Carbon Dioxide 25.3 mmol/L (22-30.0) 12/17/19 04:50 Anion Gap 12.25 12/17/19 04:50 BUN 15.7 mg/dL (7-17) 12/17/19 04:50 Creatinine 0.85 mg/dL (0.60-1.30) 12/17/19 04:50 Estimated GFR (MDRD) 64.00 mL/min 12/17/19 04:50 BUN/Creatinine Ratio 18.47 12/17/19 04:50 Glucose 118.0 mg/dL (74-106) H 12/17/19 04:50 Hemoglobin A1c 5.89 (4.0-6.0) 12/16/19 09:50 Calcium 9.37 mg/dL (8.4-10.2) 12/17/19 04:50 Magnesium 2.12 mg/dL (1.6-2.3) 12/16/19 09:50 Total Bilirubin 0.47 mg/dL (0.2-1.3) 12/17/19 04:50 AST 25.2 U/L (14-36) 12/17/19 04:50 ALT 17.4 U/L (0-35) 12/17/19 04:50 Alkaline Phosphatase 79.4 U/L (53-141) 12/17/19 04:50 Troponin I < 0.012 ng/ml (0.0000-0.120) 12/16/19 09:50 Total Protein 7.11 g/dL (6.3-8.2) 12/17/19 04:50 Albumin 4.10 g/dL (3.5-5.0) 12/17/19 04:50 Globulin 3.01 12/17/19 04:50 Albumin/Globulin Ratio 1.36 12/17/19 04:50 Urine Color Yellow (YELLOW) 12/16/19 12:23 Urine Clarity Clear (CLEAR) 12/16/19 12:23 Urine pH 6.5 (5-9) 12/16/19 12:23 Ur Specific [place] 1.010 (1.005-1.030) 12/16/19 12:23 Urine Protein Negative (NEGATIVE) 12/16/19 12:23 Urine Glucose (UA) Negative (NEGATIVE) 12/16/19 12:23 Urine Ketones Negative (NEGATIVE) 12/16/19 12:23 Urine Blood 1+ (NEGATIVE) 12/16/19 12:23 Urine Nitrite Negative (NEGATIVE) 12/16/19 12:23 Urine Bilirubin Negative (NEGATIVE) 12/16/19 12:23 Urine Urobilinogen 0.2 (0.2) 12/16/19 12:23 Ur Leukocyte Esterase Trace (NEGATIVE) 12/16/19 12:23 Urine Microscopic RBC 0-2 (0-2) 12/16/19 12:23 Urine Microscopic WBC 0-2 (0-2) 12/16/19 12:23 Ur Squamous Epith Cells 0-2 (0-5) 12/16/19 12:23 Ur Renal Epithelial Cell 0-2 (NOT PRESENT) 12/16/19 12:23 Urine Opiates Screen Negative (NEGATIVE) 12/16/19 12:23 Ur Oxycodone Screen Negative (NEGATIVE) 12/16/19 12:23 Urine Methadone Screen Negative (NEGATIVE) 12/16/19 12:23 Ur Propoxyphene Screen Negative (NEGATIVE) 12/16/19 12:23 Ur Barbiturates Screen Negative (NEGATIVE) 12/16/19 12:23 U Tricyclic Antidepress Negative (NEGATIVE) 12/16/19 12:23 Ur Phencyclidine Scrn Negative (NEGATIVE) 12/16/19 12:23 Ur Amphetamine Screen Negative (NEGATIVE) 12/16/19 12:23 U Methamphetamines Scrn Negative (NEGATIVE) 12/16/19 12:23 U Benzodiazepines Scrn Negative (NEGATIVE) 12/16/19 12:23 Urine Cocaine Screen Negative (NEGATIVE) 12/16/19 12:23 U Cannabinoids Screen Negative (NEGATIVE) 12/16/19 12:23 Patient: STACY CALLE MR #: [id number] : 1935 Age: 84 Sex: F Report Number: [id number] Date of Exam: 12/17/19 Ordering Physician: SIRIA LOPEZ[facility]: [facility] Reason for Echo: HYPERTENSION M-Mode Normal Adult Results LV Dimensions Normal Adult Results AoV Opening excursions >1.6 >1.6 LVEDD-base- 3.5-5.8 4.7 Ao root dimensions 2.0-3.7 3.2 LVESD-base- 3.1-4.6 L. Atrium dimensions 1.9-3.8 4.6 Post. Wall thickness 0.8-1.1 1.2 IV septum (thickness) 0.7-1.2 1.2 Post. Wall excursion 0.72-1.3 NORMAL Septal motion 0.8 Systolic motion R. Ventricular cavity 1.5-2.0 NORMAL LVEF 60% 50% Paradoxical septal wall motion NORMAL 2-D : 2-D M Mode Echocardiogram was performed using apical four chamber and left parasternal long and short axis views. Mitral, tricuspid and aortic valves appear to be normal. Contractility of the left ventricle seems to be normal, so is the cavity size. MILDLY HYPOKINETIC SEPTUM. ENLARGED LEFT ATRIAL CAVITY. Aortic root appears to be normal. There is no pericardial effusion. There is no thrombus noted in the left ventricle or left atrial cavity. No mitral valve prolapse noted. M-MODE: MV: NORMAL AV: NORMAL TV: NORMAL PV: CHAMBER SIZE: ENLARGED LEFT ATRIAL CAVITY WALL MOTION: MILDLY HYPOKINETIC SEPTUM PERICARDIUM: NORMAL INTERPRETATION: 1. LEFT VENTRICULAR HYPERTROPHY BORDERLINE WITH ENLARGED LEFT ATRIAL CAVITY 2. NORMAL VALVES 3. NORMAL LEFT VENTRICLE SIZE 4. MILDLY HYPOKINETIC SEPTUM WITH EJECTION FRACTION 49% Dictated By BHARATHI WRAY MD Dictating Date/Time: 12/17/19 1023 Weigh Machine Operator: BLU Signed By BHARATHI WRAY MD Signed Date/Time: 12/17/19 1252 Education Provided to Patient and Family: * Cardiac Diet--low sodium/salt & low cholesterol as directed--See handout. * Metoprolol ER 50mg by mouth every AM with breakfast. * Monitor blood pressure in AM and at bedtime as directed. Monitor how to take blood pressure as discussed --see handout. Chart your readings for blood pressure and heart rate for each day and take this information whenever you go to see the doctor so MD can help regulate your blood pressure. Do extra readings whenever you are feeling dizzy, weak, tired, or other symptoms---put the symptoms next to those reading with date and time and call doctor if needed. Your blood pressure is not like everyone else and may run 170/100's especially at first. Dr. Wray will determine the parameters he wants for you to follow. If you reading if over 200 on the top, the can and let his nurse know and also inform her is you are having any symptoms. Discuss your emergency treatment plan with Dr. Wray on your next appointment. Your blood pressure may alarm other medical people, but Dr. Wray knows your test results and is capable of handling your future needs. * Activity should be as usual for you. If any chest pain, pain radiating down left arm, shortness of breath, or other alarming symptoms, sit and rest, check you blood pressure if possible and call Dr. Wray if symptoms have resolved or if symptoms not going away after 5-10 minutes or worsening, call 911. Follow-ups: Keep your initial appointment with Dr. Wray for 12/19/2019 10 AM. Be there 15-20 minutes ahead of appointment time to complete necessary paperwork. Discharge Disposition: Home Hospital Course: Patient was admitted to hospital to be treated for asymptomatic hypertensive urgency BP 218/100 HR 122, but after monitoring and echo performed was determined to have chronic uncontrolled hypertension w/ heart disease. Patient was given Labetelol 10mg IVP X2 in ER and then Labetalol 100mg PO with VS and patient monitored. There were no significant findings with negative ROS for cardiac or end organ issues; however physical exam revealed Systolic holistic murmur > Left 5th ICS 3+/4+. Echo performed 12/17/2019 revealed borderline LVH w/ enlarged atrial cavity, normal valves, normal Left ventricle size, and mildly hypokinetic septum w/ EF 49%. Patient was started on Metoprolol ER 50mg PO daily after consulting w/ Dr. Eric Wray, steamtable attendant railroad, who will see her on d/c w/ mild titration of medication therapy and further w-u to be done prn. Patient SBP started to increase to low 200's as well as HR increasing to 140. 1 hr after Metoprolol ER administration her BP was down to 170/110 and HR 80. Patient remains symptom free --no SOB, no JARAMILLO, CP, N/V, dizziness, or any other c/o's. She will monitor her BP at home w/ instructions to take BP log on all appts w/ her medical providers. She is to call Dr. Wray's office with SBP >200 and symptoms; she will ask Dr. Wray for more parameters when seen on her appt. 12/19/2019. Plan: Discharge to home w/ RX # 30 Metoprolol ER 50mg Si tab PO every AM w/ breakfast and follow-up/management per Dr. Eric Wray. Patient has good family support through her only son and [id number], who is a PHYSICS INSTRUCTOR at [employer] [facility] [place]. She is very eager to do whatever she needs for her medical care w/ Dr. Wray. See Hospital Course notes and Patient Education section. Hi-Dose Flu vaccine & Pneumovax 23 vaccine given upon d/c. Disposition: time 60 minutes re: casemanagement, Nurse huddle, patient/family education, and provider consult w/ Dr. Wray re: Echo results and his assuming care for patient that has no physician and has been medical negligent w/o symptoms or known health issues for 52 yrs. Patient was discharge per w/c and nursing staff 12/17/2019 17:04 in stable condition.
[2019-12-17 14:58] VITALS: TEMP 98
[2019-12-17 16:16] VITALS: BP 172/108
== END 2019-12-17 16:50 | disposition home or self-care (01) ==
LOC: ED 09:18 → MEDSURG B 09:18
PROVIDERS: ADMIT Nurse Practitioner Family; ATTEND Nurse Practitioner Family